=== PATIENT | female | born 1980 | race Caucasian/White ===

== ENCOUNTER 2021-04-12 10:28 | Inpatient (IN) | payer OTHER ==
[2021-04-12 12:18] VITALS: BMI 39.4
[2021-04-12] MEDS ORDERED: OXYTOCIN 20 UNITS in 0.9% NS 20 UNIT/1,000 ML INFUS.BAG IV ONE ×2 (15:40→17:17)
[2021-04-12] MEDS ORDERED: morphine SULFATE/PF 0.5 MG/ML (2cc Syringe - QUVA) ONE (15:41)
[2021-04-12] MEDS ORDERED: ELECTROLYTE-148 SOLN 1,000 ML IV SCH (15:45)
[2021-04-12] MEDS ORDERED: ceFAZolin SODIUM 1 GM VIAL ONE (15:50)
[2021-04-12] MEDS ORDERED: KETOROLAC TROMETHAMINE 30 MG/1 ML VIAL ONE (15:50)
[2021-04-12] MEDS ORDERED: SODIUM CHLORIDE 0.9% P/F 10 ML VIAL IJ ONE (15:51)
[2021-04-12] MEDS ORDERED: morphine SULFATE/PF 0.5 MG/ML (2cc Syringe - QUVA) SPIN ONE (16:01)
[2021-04-12] MEDS ORDERED: ONDANSETRON 4 MG/2 ML VIAL IVPUSH PRN ×2 (16:52)
[2021-04-12] MEDS ORDERED: ACETAMINOPHEN 1000 MG/100 ML VIAL (NON FORMULARY) IVPB ONE (16:54)
[2021-04-12] MEDS ORDERED: LACTATED RINGERS SOLUTION 1,000 ML IV SCH (17:00)
[2021-04-12 17:27] LABS: CORD HCO3 25.8 mmHg (20-29); CORD PCO2 68.6 mmHg (30-78); CORD pH 7.193 (7.14-7.44)
[2021-04-12 17:30] LABS: CORD BASE EXCESS -4.3 mmol/L (0-2); CORD HCO3 22.7 mmHg (20-29); CORD PCO2 48.9 mmHg (30-78); CORD pH 7.285 (7.14-7.44)
[2021-04-12] MEDS ORDERED: ACETAMINOPHEN INJECTION 100 ML IVPB ONE (18:37)
[2021-04-12] MEDS ORDERED: IBUPROFEN 800 MG/8 ML IJ IVPB PRN (21:23)
[2021-04-12] MEDS ORDERED: OXYTOCIN 20 UNITS in 0.9% NS 20 UNIT/1,000 ML INFUS.BAG IV SCH (21:30)
[2021-04-12] MEDS: CEFAZOLIN 2 GM/D5W 2 GM/50 ML ML IVPB SCH (22:22)
[2021-04-13] MEDS: CEFAZOLIN 2 GM/D5W 2 GM/50 ML ML IVPB SCH (05:37)
[2021-04-13 07:55] LABS: BASO % 0.4 % (0-2.0); HEMATOCRIT 35.4 % (32.4-45.2); LYMPH % 8.2 % (8-40); MCH 29.8 pg (25.7-33.7); MEAN CELL VOLUME 87.6 fl (80-96); MEAN PLT VOLUME 8.8 fl (7.5-11.1); NEUT % 84.4 % (42.8-82.8); PLATELET COUNT 211 10^3/uL (134-434); RBC 4.04 M/mm3 (3.60-5.2); RDW 14.6 % (11.6-15.6); WHITE BLOOD COUNT 10.9 K/mm3 (4.0-10.0)
[2021-04-13] MEDS: ENOXAPARIN NA (PORCINE) 40 MG/0.4 ML DISP.SYRIN SQ SCH (09:45)
[2021-04-13] MEDS: ACETAMINOPHEN 325 MG TABLET (FP) PO PRN (09:50)
[2021-04-13] MEDS: SIMETHICONE 80 MG TAB.CHEW (FP) PO PRN (16:43)
[2021-04-14] MEDS: IBUPROFEN 600 MG TABLET (FP) PO PRN ×2 (07:56→16:25)
[2021-04-14] MEDS: ACETAMINOPHEN 325 MG TABLET (FP) PO PRN ×2 (07:58→16:25)
[2021-04-14] MEDS: ENOXAPARIN NA (PORCINE) 40 MG/0.4 ML DISP.SYRIN SQ SCH (09:57)
[2021-04-14] MEDS: SIMETHICONE 80 MG TAB.CHEW (FP) PO PRN (16:27)
[2021-04-15] MEDS: ACETAMINOPHEN 325 MG TABLET (FP) PO PRN (06:43)
[2021-04-15] MEDS: SIMETHICONE 80 MG TAB.CHEW (FP) PO PRN (06:43)
[2021-04-15] MEDS: IBUPROFEN 600 MG TABLET (FP) PO PRN (06:44)
[2021-04-15 09:19] LABS: BASO % 0.4 % (0-2.0); EOS % 4.5 % (0-4.5); HEMATOCRIT 37.7 % (32.4-45.2); HEMOGLOBIN 12.7 GM/dL (10.7-15.3); LYMPH % 11.9 % (8-40); MCH 29.7 pg (25.7-33.7); MCHC 33.6 g/dl (32.0-36.0); MEAN CELL VOLUME 88.4 fl (80-96); MEAN PLT VOLUME 8.3 fl (7.5-11.1); MONO % 5.5 % (3.8-10.2); NEUT % 77.7 % (42.8-82.8); PLATELET COUNT 263 10^3/uL (134-434); RBC 4.27 M/mm3 (3.60-5.2); WHITE BLOOD COUNT 11.4 K/mm3 (4.0-10.0)
[2021-04-15] MEDS: ENOXAPARIN NA (PORCINE) 40 MG/0.4 ML DISP.SYRIN SQ SCH (09:30)
[2021-04-15 10:24] VITALS: BP 105/72; PULSE 92; TEMP 97.5
== END 2021-04-15 12:15 | disposition home or self-care (01) | DRG 540 ==
LOC: JLDR 10:28 → J3W 19:45
PROVIDERS: ADMIT Obstetrics & Gynecology; ATTEND Obstetrics & Gynecology
PROC: 10D00Z1 Extraction of Products of Conception, Low, Open Approach (ICD-10-PCS; principal; 2021-04-12)
PROC: 0UL70ZZ Occlusion of Bilateral Fallopian Tubes, Open Approach (ICD-10-PCS; 2021-04-12)
DX: O34.219 Maternal care for unspecified type scar from previous cesarean delivery (principal); O99.214 Obesity complicating childbirth; Z3A.39 39 weeks gestation of pregnancy; Z37.0 Single live birth; Z30.2 Encounter for sterilization
CPT/HCPCS: 36415; 36600; 80048; 82803; 85025; 85610; 85730; 86780; 86850; 86900; 86901; 88302-TC; 88307-TC; C9803; J0131; U0003; U0005